=== PATIENT | male | born 1925 | race Caucasian/White ===

== ENCOUNTER 2016-06-13 | Outpatient (CLI) | payer MEDICARE, OTHER | END 2016-06-13 16:59 | disposition critical access hospital (66) | CPT/HCPCS: A0425; A0427 ==

== ENCOUNTER 2016-06-13 17:24 | Inpatient (IN) | payer MEDICARE, OTHER ==
[2016-06-13] MEDS ORDERED: SODIUM CHLORIDE 0.9% 1,000 ML IV ONE (18:14)
[2016-06-13] MEDS ORDERED: cefTRIAXone 2 GM in SODIUM CHLORIDE 0.9% MINIBAG 100 ML IV STA (19:29)
[2016-06-13] MEDS ORDERED: AZITHROMYCIN INJ 500 MG in SODIUM CHLORIDE 0.9% 250 ML IV STA (19:29)
[2016-06-13] MEDS ORDERED: cefTRIAXone 2 GM VIAL ONE (20:00)
[2016-06-13] MEDS ORDERED: SODIUM CHLORIDE 0.9% MINIBAG 100 ML IV ONE (20:00)
[2016-06-13] MEDS ORDERED: ONDANSETRON 4 MG/2 ML VIAL IVP PRN (20:26)
[2016-06-13] MEDS ORDERED: SODIUM CHLORIDE FLUSH 0.9% 10 ML SYRINGE IVP PRN (20:26)
[2016-06-13] MEDS ORDERED: HYDROcod/ACETAM 10 MG/325 MG TABLET PO PRN (20:26)
[2016-06-13] MEDS ORDERED: ALBUTEROL NEB 2.5 MG/3 ML INH PRN (20:26)
[2016-06-13] MEDS ORDERED: ACETAMINOPHEN 325 MG TABLET PO PRN (20:26)
[2016-06-13] MEDS ORDERED: HYDROcod/ACETAM 5/325 MG TABLET PO PRN (20:26)
[2016-06-13] MEDS: SODIUM CHLORIDE 0.9% 1,000 ML IV SCH (21:56)
[2016-06-13] MEDS: amLODIPine 5 MG TABLET PO SCH (21:56)
[2016-06-13] MEDS: SODIUM CHLORIDE FLUSH 0.9% 10 ML SYRINGE IVP SCH (21:57)
[2016-06-14] MEDS: amLODIPine 5 MG TABLET PO SCH ×2 (05:21→21:24)
[2016-06-14] MEDS: SODIUM CHLORIDE FLUSH 0.9% 10 ML SYRINGE IVP SCH ×2 (06:29→14:13)
[2016-06-14] MEDS: PANTOPRAZOLE 40 MG TABLET PO SCH (06:29)
[2016-06-14] MEDS ORDERED: LACOSAMIDE 200 MG PO SCH (09:00)
[2016-06-14] MEDS: SODIUM CHLORIDE 0.9% 1,000 ML IV SCH ×2 (11:07→23:01)
[2016-06-14] MEDS: SACCHAROMYCES BOULARDII 250 MG CAPSULE PO SCH ×2 (11:24→17:08)
[2016-06-14] MEDS: ENOXAPARIN 40 MG/0.4 ML SYRINGE SUBQ SCH (11:24)
[2016-06-14] MEDS: DIVALPROEX DR 250 MG TABLET PO SCH (11:46)
[2016-06-14] MEDS: levETIRAcetam 100 MG/ML 473ML BOTTLE PO SCH ×2 (11:46→21:23)
[2016-06-14] MEDS: POLYETHYLENE GLYCOL 3350 17 GM PACKET PO SCH (14:12)
[2016-06-14] MEDS: AZITHROMYCIN INJ 500 MG in SODIUM CHLORIDE 0.9% 250 ML IV SCH (14:12)
[2016-06-14] MEDS: cefTRIAXone 2 GM in SODIUM CHLORIDE 0.9% MINIBAG 100 ML IV SCH (14:12)
[2016-06-14] MEDS: EYELID CLEANSER COMBINATION EACHEYE SCH (14:14)
[2016-06-14] MEDS: LORazepam 2 MG/ML SYRINGE IVP PRN (15:39)
[2016-06-15] MEDS: LORazepam 2 MG/ML SYRINGE IVP PRN ×4 (00:08→10:14)
[2016-06-15] MEDS: SODIUM CHLORIDE FLUSH 0.9% 10 ML SYRINGE IVP SCH ×4 (00:09→20:16)
[2016-06-15] MEDS: PANTOPRAZOLE 40 MG TABLET PO SCH ×2 (07:18→07:20)
[2016-06-15] MEDS: ENOXAPARIN 40 MG/0.4 ML SYRINGE SUBQ SCH (08:33)
[2016-06-15] MEDS: SACCHAROMYCES BOULARDII 250 MG CAPSULE PO SCH ×2 (08:34→18:32)
[2016-06-15] MEDS: POLYETHYLENE GLYCOL 3350 17 GM PACKET PO SCH (08:34)
[2016-06-15] MEDS: cefTRIAXone 2 GM in SODIUM CHLORIDE 0.9% MINIBAG 100 ML IV SCH (08:34)
[2016-06-15] MEDS: AZITHROMYCIN INJ 500 MG in SODIUM CHLORIDE 0.9% 250 ML IV SCH (08:34)
[2016-06-15] MEDS: levETIRAcetam 100 MG/ML 473ML BOTTLE PO SCH ×2 (08:35→20:14)
[2016-06-15] MEDS ORDERED: CARBOXYMETHYLCELLULOSE OPHTH DROPS EACHEYE PRN (08:38)
[2016-06-15] MEDS: LOSARTAN 50 MG TABLET PO SCH ×2 (09:05→20:14)
[2016-06-15] MEDS: EYELID CLEANSER COMBINATION EACHEYE SCH (10:56)
[2016-06-15] MEDS: DIVALPROEX DR 250 MG TABLET PO SCH (13:21)
[2016-06-15] MEDS ORDERED: LORazepam 2 MG/ML SYRINGE IVP PRN (17:37)
[2016-06-15] MEDS: amLODIPine 5 MG TABLET PO SCH (20:14)
[2016-06-15] MEDS ORDERED: LORazepam 0.5 MG TABLET ONE (22:05)
[2016-06-15] MEDS ORDERED: LORazepam 0.5 MG TABLET PO SCH (23:00)
[2016-06-16] MEDS: PANTOPRAZOLE 40 MG TABLET PO SCH (06:53)
[2016-06-16] MEDS: SODIUM CHLORIDE 0.9% 1,000 ML IV SCH ×3 (06:58→10:22)
[2016-06-16] MEDS: SODIUM CHLORIDE FLUSH 0.9% 10 ML SYRINGE IVP SCH (06:59)
[2016-06-16] MEDS: ENOXAPARIN 40 MG/0.4 ML SYRINGE SUBQ SCH (08:41)
[2016-06-16] MEDS: SACCHAROMYCES BOULARDII 250 MG CAPSULE PO SCH (08:41)
[2016-06-16] MEDS: LOSARTAN 50 MG TABLET PO SCH (08:42)
[2016-06-16] MEDS: levETIRAcetam 100 MG/ML 473ML BOTTLE PO SCH (08:42)
[2016-06-16] MEDS: POLYETHYLENE GLYCOL 3350 17 GM PACKET PO SCH (08:42)
[2016-06-16] MEDS: cefTRIAXone 2 GM in SODIUM CHLORIDE 0.9% MINIBAG 100 ML IV SCH (10:21)
[2016-06-16] MEDS: EYELID CLEANSER COMBINATION EACHEYE SCH (10:21)
[2016-06-16] MEDS: AZITHROMYCIN INJ 500 MG in SODIUM CHLORIDE 0.9% 250 ML IV SCH (10:21)
== END 2016-06-16 10:00 | disposition home or self-care (01) | DRG 195 ==
DX: J18.1 Lobar pneumonia, unspecified organism (principal); R41.82 Altered mental status, unspecified; J18.9 Pneumonia, unspecified organism; I10 Essential (primary) hypertension; G40.909 Epilepsy, unspecified, not intractable, without status epilepticus; Z79.899 Other long term (current) drug therapy; F03.90 Unspecified dementia, unspecified severity, without behavioral disturbance, psychotic disturbance, mood disturbance, and anxiety; R45.1 Restlessness and agitation

== ENCOUNTER 2016-09-10 12:28 | Outpatient (CLI) | payer MEDICARE, OTHER | END 2016-09-10 12:29 | disposition critical access hospital (66) | DX: R56.9 Unspecified convulsions (principal) | CPT/HCPCS: A0425; A0429 ==

== ENCOUNTER 2016-09-10 12:57 | Emergency (ER) | payer MEDICARE, OTHER ==
[2016-09-10] MEDS ORDERED: DIVALPROEX DR 125 MG TABLET PO STA (14:24)
== END 2016-09-10 15:28 | disposition home or self-care (01) ==
DX: G40.909 Epilepsy, unspecified, not intractable, without status epilepticus (principal); F03.90 Unspecified dementia, unspecified severity, without behavioral disturbance, psychotic disturbance, mood disturbance, and anxiety; I10 Essential (primary) hypertension; Z87.891 Personal history of nicotine dependence
CPT/HCPCS: 36415; 80053; 80164; 83690; 85025; 99284; A9270

== ENCOUNTER 2016-09-26 08:00 | Outpatient (CLI) | payer MEDICARE, OTHER | END 2016-09-26 23:59 | DX: G40.909 Epilepsy, unspecified, not intractable, without status epilepticus (principal) ==

== ENCOUNTER 2017-02-20 16:51 | Outpatient (CLI) | payer MEDICARE, OTHER ==
[2017-02-20 18:35] LABS: BASOPHILS # (AUTO) 0.1 10^3/uL (0.0-0.1); BASOPHILS % (AUTO) 0.6 %; EOSINOPHILS # (AUTO) 0.1 10^3/uL (0.0-0.7); HCT - HEMATOCRIT 36.8 % (42.0-52.0); HGB - HEMOGLOBIN 13.2 g/dL (14.0-18.0); LYMPHOCYTES # (AUTO) 1.7 10^3/uL (1.5-3.5); LYMPHOCYTES % (AUTO) 17.6 %; MEAN CORPUSCULAR HEMOGLOBIN 32.3 pg (27.0-31.0); MEAN CORPUSCULAR HGB CONC 35.8 g/dL (32.0-36.0); MEAN CORPUSCULAR VOLUME 90.2 fL (80.0-94.0); MEAN PLATELET VOLUME 8.4 fL (7.4-11.4); MONOCYTES # (AUTO) 0.8 10^3/uL (0.0-1.0); MONOCYTES % (AUTO) 8.6 %; NEUTROPHILS % (AUTO) 72.2 %; NUCLEATED RED BLOOD CELLS AUTO 0.1 /100WBC; RED BLOOD COUNT 4.08 10^6/uL (4.70-6.10); RED CELL DISTRIBUTION WIDTH 13.1 % (12.0-15.0); UNCORRECTED WHITE BLOOD COUNT 9.7 x10^3/uL; WHITE BLOOD COUNT 9.7 x10^3/uL (4.8-10.8)
[2017-02-20 19:06] LABS: ALBUMIN/GLOBULIN RATIO 1.3 (1.0-2.2); BILIRUBIN,TOTAL 0.5 mg/dL (0.2-1.0); BUN - BLOOD UREA NITROGEN 22 mg/dL (6-20); CALCIUM 8.7 mg/dL (8.5-10.3); CARBON DIOXIDE - CO2 27 mmol/L (21-32); CHLORIDE 102 mmol/L (101-111); CREATININE 1.1 mg/dL (0.6-1.2); GFR - MDRD 63 (>89); GLUCOSE 100 mg/dL (70-100); POTASSIUM 4.2 mmol/L (3.5-5.0); SODIUM 138 mmol/L (135-145); TOTAL PROTEIN 6.5 g/dL (6.7-8.2)
== END 2017-02-20 16:52 | disposition home or self-care (01) ==
LOC: LAB.R 16:51
PROVIDERS: ATTEND Physician Assistant Medical
DX: R53.83 Other fatigue (principal); Z79.899 Other long term (current) drug therapy; R05 Cough
CPT/HCPCS: 80053; 80164; 85025; 85651; 87086

== ENCOUNTER 2017-02-25 11:10 | Outpatient (CLI) | payer MEDICARE, OTHER ==
--- NOTE | 2017-02-25 18:16 | XRAY Report ---
TWO VIEW CHEST: 02/25/2017 CLINICAL INDICATION: Fatigue, malaise. Frontal and lateral views of the chest demonstrate a normal cardiac silhouette. The lungs are hyperi nflated, compatible with COPD. No focal consolidation, effusion, or pneumothorax is present. IMPRESSION: HYPERINFLATION, BUT NO EVIDENCE OF ACUTE CARDIOPULMONARY DISEASE. JOB #: [id number] EXT JOB #:[id number]
== END 2017-02-25 11:11 | disposition home or self-care (01) ==
LOC: DI 11:10
PROVIDERS: ATTEND Physician Assistant Medical
DX: R53.83 Other fatigue (principal)
CPT/HCPCS: 71020

== ENCOUNTER 2017-02-25 14:24 | Outpatient (CLI) | payer MEDICARE, OTHER | END 2017-02-25 14:25 | disposition EMS.NT | LOC: EMS 14:24 | PROVIDERS: ATTEND Surgery | DX: R40.20 Unspecified coma (principal) ==

== ENCOUNTER 2017-03-21 17:59 | Outpatient (CLI) | payer MEDICARE, OTHER | END 2017-03-21 18:00 | disposition EMS.NT | LOC: EMS 17:59 | PROVIDERS: ATTEND Surgery | DX: R07.81 Pleurodynia (principal); W18.39XA Other fall on same level, initial encounter; W22.8XXA Striking against or struck by other objects, initial encounter; Y92.098 Other place in other non-institutional residence as the place of occurrence of the external cause ==